=== PATIENT | female | born 1980 | race Caucasian/White ===

== ENCOUNTER 2018-03-16 05:44 | Day surgery (SDC) | payer OTHER ==
[2018-03-16] MEDS ORDERED: SCOPOLAMINE HYDROBROMIDE 1.5MG/72HR PATCH TD ONE ×2 (06:02→08:48)
[2018-03-16] MEDS ORDERED: PREGNANCY TEST KIT 1 EACH KIT MC ONE (06:03)
[2018-03-16] MEDS ORDERED: LACTATED RINGERS 1,000 ML IV ONE (06:03)
[2018-03-16] MEDS ORDERED: FAMOTIDINE 20 MG/2 ML VIAL ONE ×2 (06:17→08:48)
[2018-03-16] MEDS ORDERED: ENOXAPARIN SODIUM 40 MG/0.4 ML DISP.SYRIN SQ ONE (06:19)
[2018-03-16] MEDS ORDERED: ePHEDrine SULFATE 50 MG/1 ML IVP ONE (08:48)
[2018-03-16] MEDS ORDERED: SUGAMMADEX SODIUM 200 MG/2 ML VIAL IV ONE (08:48)
[2018-03-16] MEDS ORDERED: ROCURONIUM BROMIDE 10 MG/ML 5ML VIAL ONE (08:48)
[2018-03-16] MEDS ORDERED: KETOROLAC TROMETHAMINE 30 MG/1ML VIAL ONE (08:48)
[2018-03-16] MEDS ORDERED: fentaNYL CITRATE/PF 100 MCG/2 ML INJ. ONE ×3 (08:48→10:18)
[2018-03-16] MEDS ORDERED: LACTATED RINGERS 1,000 ML IV.SOLN IV ONE ×2 (08:48)
[2018-03-16] MEDS ORDERED: LIDOCAINE HCL 2% PF 100MG/5ML VIAL IJ ONE (08:48)
[2018-03-16] MEDS ORDERED: MIDAZOLAM HCL 2 MG/2 ML VIAL ONE (08:48)
[2018-03-16] MEDS ORDERED: PROPOFOL 200 MG/20 ML VIAL IV ONE (08:48)
[2018-03-16] MEDS ORDERED: CLINDAMYCIN PHOSPHATE 900 MG/6 ML VIAL ONE (08:48)
[2018-03-16] MEDS ORDERED: SEVOFLURANE 250 ML LIQUID IH ONE (08:48)
[2018-03-16] MEDS ORDERED: EPINEPHrine/PF 1 MG/1 ML 1:1000 ONE (08:48)
[2018-03-16] MEDS ORDERED: DEXAMETHASONE SOD PHOS 4 MG/ML VIAL ONE (08:48)
[2018-03-16] MEDS ORDERED: FENTANYL CITRATE/PF 250 MCG/5 ML INJ. ONE (08:48)
[2018-03-16] MEDS ORDERED: ESMOLOL HCL 100 MG/10 ML IV ONE (08:48)
[2018-03-16] MEDS ORDERED: ONDANSETRON HCL/PF 4 MG/ 2ML VIAL ONE (08:48)
[2018-03-17 09:01] VITALS: BP 101/52
== END 2018-03-16 11:06 | disposition other institution (70) ==
LOC: EDSEX 05:44 → OPSURG 05:44
PROVIDERS: ATTEND Surgery
DX: E66.01 Morbid (severe) obesity due to excess calories (principal); Z68.43 Body mass index [BMI] 50.0-59.9, adult; E11.9 Type 2 diabetes mellitus without complications; I10 Essential (primary) hypertension; K21.9 Gastro-esophageal reflux disease without esophagitis
CPT/HCPCS: 43235; 43775; A9270; J0171; J1100; J1650; J1885; J2001; J2250; J2405; J2704; J3010; J7120; S0028; 81025; S1016

== ENCOUNTER 2018-03-16 11:07 | Inpatient (IN) | payer OTHER ==
[2018-03-16] MEDS ORDERED: ONDANSETRON HCL/PF 4 MG/ 2ML VIAL IVP PRN (11:27)
[2018-03-16] MEDS ORDERED: ACETAMINOPHEN 1,000 MG/100 ML INJ IV PRN (11:27)
[2018-03-16] MEDS ORDERED: LEVALBUTEROL HCL 1.25 MG/3 ML AMPUL.NEB NEB PRN (11:27)
[2018-03-16] MEDS ORDERED: PROMETHAZINE HCL 25 MG in 0.9 % SODIUM CHLORIDE 50 ML IV PRN (11:27)
--- NOTE | 2018-03-16 12:06 | History and Physical Report ---
History of Present Illnes - History of Present Illness Reason for Visit: S/P Gastric Sleeve History of Present Illness: Patient is a 37-year-old white female who has tried multiple diets and exercise programs with no success. Patient states that she has always been overweight and has struggled since was [id number]. Patient and surgeon decided to proceed with gastric sleeve procedure. Procedure went well without complications- patient will be admitted and monitored s/p surgical intervention. Patient still very lethargic s/p surgery- nursing keeps waking patient up to get oxygen sats up above 90%. She does arouse easily and takes deep breaths. Therapy in room to get patient up and walking. - Past Medical History Cardiac: HTN Pulmonary: Asthma JAVA SDET: Migraine Gastrointestinal: GERD Heme/Onc: denies: Anemia NOS Hepatobiliary: Other (Hx of fatty liver- per pt) Psych: denies: Depression Musculoskeletal: Chronic low back pain Endocrine: Diabetes, obesity Grav: 2 Para: 2 - Past Surgical History Past Surgical History: Appendectomy, Cholecystectomy, (x2), Other (elbow fx) - Past Family History Mother Family History: DM, Hypertension Father Family History: DM - Past Social History Smoke: No Occupation: disabled Alcohol: None Drugs: None Lives: With Family Domestic Violence: Negative - Health Maintenance Health Maintenance: denies: Influenza Vaccine, Pneumococcal Vaccine Influenza Vaccine: Patient Refused Pneumonia Vaccine: No Resuscitation Status: Resusciation Status Resuscitation Status Full Code - Unable to Obtain History Unable to Obtain: No Review of Systems - Review of Systems Constitutional: Weakness, Other (Still feeling very tired) Eyes: negative: pain, vision change ENT: negative: Ear Pain, Nose Pain, Throat Pain Respiratory: negative: Cough, Shortness of Breath Cardiovascular: negative: Chest Pain, Light Headedness Gastrointestinal: Nausea. negative: Vomiting, Abdominal Pain (s/p gastric sleeve) Genitourinary: Other (currently on menses). negative: Dysuria Musculoskeletal: negative: Back Pain Skin: negative: Rash Neurological: Weakness - Medications/Allergies Allergies/Adverse Reactions: Allergies Allergy/AdvReac Type Severity Reaction Status Date / Time aspirin Allergy Unknown Verified 03/16/18 12:35 codeine Allergy Unknown Verified 03/16/18 12:35 morphine Allergy Unknown Verified 03/16/18 12:35 Penicillins Allergy Unknown Verified 03/16/18 12:35 Home Medications: Home Medications Atorvastatin Calcium 40 mg PO HS 03/16/18 Benazepril HCl 10 mg PO DAILY 03/16/18 Cetirizine HCl [Zyrtec] 10 mg PO DAILY 03/16/18 Cholecalciferol (Vitamin D3) [Vitamin D3] 5,000 unit PO WEEK 03/16/18 Insulin Detemir [Levemir Flex-Pen] 12 unit SQ HS 03/16/18 Metformin HCl 1,000 mg PO BID 03/16/18 Metoclopramide HCl 10 mg PO DAILY 03/16/18 Naproxen [Naprosyn] 500 mg PO PRN PRN 03/16/18 Pantoprazole Sodium [Protonix] 40 mg PO DAILY 03/16/18 Topiramate [Topamax] 200 mg PO BID 03/16/18 diphenhydrAMINE HCL [Benadryl] 25 mg PO DAILY 03/16/18 Current Inpatient Medications: Current Inpatient Medications Acetaminophen (Ofirmev) 1,000 mg IV Q6H PRN PRN Reason: For Mild Breakthrough Pain Stop: 03/20/18 11:26 Enoxaparin Sodium (Lovenox) 40 mg SQ QD [facility] Stop: 03/31/18 11:59 Famotidine (Pepcid) 20 mg IVP BID [facility] Stop: 03/20/18 20:59 Promethazine HCl 25 mg/ Sodium (Chloride) 51 mls @ 600 mls/hr IV Q6 PRN PRN Reason: Nausea / Vomiting Stop: 03/20/18 11:26 Sodium Chloride (Normal Saline) 1,000 mls @ 150 mls/hr IV Q8H [facility] Clindamycin Phosphate 600 mg/ (Sodium Chloride) 104 mls @ 104 mls/hr IV Q8 [facility] Stop: 03/16/18 21:01 Ketorolac Tromethamine (Toradol) 30 mg IVP Q6 PRN PRN Reason: For Mild Pain Stop: 03/20/18 11:26 Levalbuterol HCl (Xopenex) 1.25 mg NEB Q4 PRN PRN Reason: SOA, Dyspnea, or Wheezing Stop: 03/20/18 11:26 Miscellaneous (Chem Sticks) 1 each CHEMQID [facility] Miscellaneous (Topiramate [Topamax]) 200 mg PO BID [facility] Ondansetron HCl (Zofran 4 Mg/2 Ml) 4 mg IVP Q6H PRN PRN Reason: Nausea / Vomiting Stop: 03/20/18 11:26 Exam - Exam General: Alert, Oriented to Person, Oriented to Place, Oriented to Time, Cooperative, Mild distress, Other (Exam completed when patient came back from walking- much more awake and alert), Morbidly Obese HEENT: Atraumatic, Mouth Mucous membr. moist/[place], Nose Mucous membr. moist/[place] Neck: Normal Range of Motion Lungs: Clear to auscultation, Normal air movement, Speaks full Sentences Cardiovascular: Regular rate, Normal S1, Normal S2 Peripheral Pulses: 1+ Abdomen: Soft, Decreased Bowel Sounds Integumentary: [place], Warm, Dry, Other (x5 incision drsg dry & intact) Extremities: Normal pulses, No tenderness/swelling Neurological: Normal gait, Normal speech, Strength Equal Bilat, Sensation intact Psych/Mental Status: Mental status NL, Mood NL, Appropriate Affect Assessment/Plan - Assessment/Plan (1) S/P gastric surgery Status: Acute Current Visit: Yes Assessment: Incisions are without redness/erythema, legs are without tenderness/pain, LCTA Plan: Will monitor incision sites, patient will be placed on Lovenox daily, frequent ambulation and SCDs while in bed, patient will use incentive spirometer to prevent resp. infections, will start PPI, and will give IVFs until patient can tolerate PO (2) Morbid (severe) obesity due to excess calories Status: Acute Current Visit: Yes Assessment: S/P Gastric Sleeve (3) Hypertension Status: Acute Current Visit: Yes Qualifiers: Hypertension type: essential hypertension Qualified Code(s): I10 - Essential (primary) hypertension Assessment: Blood pressure stable Plan: Will hold medication and monitor blood pressures (4) Type 2 diabetes mellitus Status: Acute Current Visit: Yes Qualifiers: Diabetes mellitus moth proofer insulin use: unspecified moth proofer insulin use status Diabetes mellitus complication status: without complication Qualified Code(s): E11.9 - Type 2 diabetes mellitus without complications Assessment: Blood sugars greater than 200. She has an A1C of 8.9 on 03/06/18. Plan: Will place patient on sliding scale insulin (5) Asthma Status: Acute Current Visit: Yes Qualifiers: Asthma severity: mild Assessment: Stable on home meds Plan: Will monitor- will use incentive spirometer (6) Migraines Status: Acute Current Visit: Yes Qualifiers: Migraine type: unspecified Assessment: Patient has chronic migraines and takes topirimate Plan: Spoke with Roberto in pharmacy and we can continue with patient dose of Topiramate XR 200 mg BID. He stated that we could crush if tablet- or open capsule. (discussed due to s/p gastric sleeve) VTE Assessment - RISK FACTOR SCORE VTE RISK FACTOR SCORES: OBESITY, MAJOR SURGERY/ANESTHESIA TIME > 1 HOUR (Lovenox daily, frequent ambulation, SCDs while in bed)
[2018-03-16] MEDS: 0.9 % SODIUM CHLORIDE 1,000 ML IV SCH ×2 (12:53→20:30)
[2018-03-16] MEDS: KETOROLAC TROMETHAMINE 30 MG/1ML VIAL IVP PRN ×2 (12:54→18:43)
[2018-03-16] MEDS ORDERED: CLINDAMYCIN PHOSPHATE 600 MG in 0.9 % SODIUM CHLORIDE 100 ML IV SCH (16:30)
[2018-03-16] MEDS ORDERED: CLINDAMYCIN PHOSPHATE/D5W 600 MG/50 ML PIGGYBACK IV ONE ×2 (16:39→20:10)
[2018-03-16] MEDS: INSULIN REGULAR, HUMAN 100 UNIT/ML 3ML VIAL SQ SCH ×2 (16:45→20:38)
[2018-03-16] MEDS: CLINDAMYCIN PHOSPHATE/D5W 600 MG/50 ML PIGGYBACK IV SCH (16:45)
[2018-03-16 17:50] VITALS: BMI 75.6
[2018-03-16] MEDS ORDERED: TOPIRAMATE 50 MG TABLET PO ONE (20:11)
[2018-03-16] MEDS: FAMOTIDINE 20 MG/2 ML VIAL IVP SCH (20:33)
[2018-03-16] MEDS: TOPIRAMATE 200 MG PO SCH (20:35)
[2018-03-16] MEDS ORDERED: TOPIRAMATE 200 MG PO SCH (21:00)
[2018-03-17] MEDS: CLINDAMYCIN PHOSPHATE/D5W 600 MG/50 ML PIGGYBACK IV SCH (00:35)
[2018-03-17] MEDS: 0.9 % SODIUM CHLORIDE 1,000 ML IV SCH (02:55)
[2018-03-17] MEDS: KETOROLAC TROMETHAMINE 30 MG/1ML VIAL IVP PRN ×2 (03:34→08:33)
--- NOTE | 2018-03-17 07:07 | Discharge Summary ---
Discharge Summary - Discharge Sumary History of Present Illness: Patient is a 37-year-old white female who has tried multiple diets and exercise programs with no success. Patient states that she has always been overweight and has struggled since was [id number]. Patient and surgeon decided to proceed with gastric sleeve procedure. Procedure went well without complications- patient will be admitted and monitored s/p surgical intervention. Patient still very lethargic s/p surgery- nursing keeps waking patient up to get oxygen sats up above 90%. She does arouse easily and takes deep breaths. Therapy in room to get patient up and walking. Condition at Discharge: Stable Home Medications: Ambulatory Orders Medication Instructions Recorded Atorvastatin Calcium 40 mg PO HS 03/16/18 Benazepril HCl 10 mg PO DAILY 03/16/18 Cetirizine HCl [Zyrtec] 10 mg PO DAILY 03/16/18 Cholecalciferol (Vitamin D3) 5,000 unit PO WEEK 03/16/18 [Vitamin D3] Insulin Detemir [Levemir Flex-Pen] 12 unit SQ HS 03/16/18 Metformin HCl 1,000 mg PO BID 03/16/18 Metoclopramide HCl 10 mg PO DAILY 03/16/18 Naproxen [Naprosyn] 500 mg PO PRN PRN 03/16/18 Pantoprazole Sodium [Protonix] 40 mg PO DAILY 03/16/18 Topiramate [Topamax] 200 mg PO BID 03/16/18 diphenhydrAMINE HCL [Benadryl] 25 mg PO DAILY 03/16/18 Consultations this Visit: None Procedures this Visit: Other (S/P gastric sleeve) Allergies/Adverse Reactions: Allergies Allergy/AdvReac Type Severity Reaction Status Date / Time aspirin Allergy Unknown Verified 03/16/18 12:35 codeine Allergy Unknown Verified 03/16/18 12:35 morphine Allergy Unknown Verified 03/16/18 12:35 Penicillins Allergy Unknown Verified 03/16/18 12:35 Patient Problems: Current Active Problems Problem Status Onset Asthma Acute Hypertension Acute Migraines Acute Morbid (severe) obesity due to excess calories Acute S/P gastric surgery Acute Type 2 diabetes mellitus Acute Discharge Summary: Patient is a 37-year-old white female that underwent the gastric sleeve procedure and has done very well. She has been very cooperative with her care by ambulating frequently, using her incentive spirometer, and wearing her SCDs while in bed. She has been compliant with her diet during hospitalization. She is having minimal discomfort at this time and minimal nausea- she has is passing gas and belching. She is aware of discharge instructions and what she can and cannot do post surgical- she is aware of the strict diet she must follow to decrease discomfort and have success after procedure. She has family support and mother will be taking her home- medications written by surgeon given to patient. She appears very positive and excited about the future. She is ready to go home. Hospital Course: Patient has been cooperative with care and treatment. Minimal nausea and mild to moderate discomfort. She has received pain and nausea medication as directed. - Final Diagnosis (1) S/P gastric surgery Problems: Incisions are without redness/erythema, legs are without tenderness/pain, LCTA, patient will use incentive spirometer to prevent resp. infections while at home, and frequent ambulation Right or Left: Right (2) Morbid (severe) obesity due to excess calories Problems: S/P gastric sleeve Right or Left: Right (3) Hypertension Problems: Blood pressures stable Right or Left: Right (4) Type 2 diabetes mellitus Problems: Blood sugars are elevated- was on sliding scale insulin- will continue on Levemir and she will keep a log of blood sugars and take to follow up appointment Right or Left: Right (5) Asthma Problems: stable- lCTA- will use incentive spirometer at home Right or Left: Right (6) Migraines Problems: stable on home meds- continue lithium Right or Left: Right
[2018-03-17] MEDS ORDERED: TOPIRAMATE 50 MG TABLET PO ONE (07:36)
[2018-03-17] MEDS: TOPIRAMATE 200 MG PO SCH (07:39)
[2018-03-17] MEDS: INSULIN REGULAR, HUMAN 100 UNIT/ML 3ML VIAL SQ SCH (07:42)
[2018-03-17] MEDS: FAMOTIDINE 20 MG/2 ML VIAL IVP SCH (08:32)
[2018-03-17] MEDS ORDERED: TOPIRAMATE 50 MG TABLET PO SCH (09:00)
[2018-03-17 09:01] VITALS: BP 101/52
[2018-03-17] MEDS ORDERED: ENOXAPARIN SODIUM 40 MG/0.4 ML DISP.SYRIN SQ SCH (12:00)
== END 2018-03-17 08:50 | disposition home or self-care (01) | DRG 641 ==
LOC: SOUTH 11:07
PROVIDERS: ADMIT Nurse Practitioner Family; ATTEND Nurse Practitioner Family
DX: E66.01 Morbid (severe) obesity due to excess calories (principal); E11.9 Type 2 diabetes mellitus without complications; I10 Essential (primary) hypertension; J45.909 Unspecified asthma, uncomplicated; G43.919 Migraine, unspecified, intractable, without status migrainosus; M54.5 Low back pain
CPT/HCPCS: 99222; 99238; J1885; J2405; J3490; J1815; J7030